=== PATIENT | male | born 1970 | race Caucasian/White ===

== ENCOUNTER → 2019-05-22 | Outpatient (CLI) | payer OTHER, SELFPAY ==
--- NOTE | 2019-05-22 15:27 | MRI_ITS ---
HISTORY: Neck pain, right-sided cervical radiculopathy COMPARISON: None. TECHNIQUE: Multisequence multiplanar MR imaging of the cervical spine was performed per department protocol without IV gadolinium. # of images incl. paperwork: [id number] FINDINGS: VERTEBRA: Congenital narrowed cervical spinal canal on the basis of short pedicles from C3-C6. There is 1-2 mm anterolisthesis of C3 upon C4. Remaining cervical vertebra are in satisfactory alignment. No acute fracture or subluxation. Vertebral body heights are normal. Mild anterior marginal osteophytes at C5 and C6. No focal marrow signal abnormality is seen to suggest a pathologic process. The visualized posterior fossa is normal in signal. CORD: Cervicomedullary junction and cervical cord are normal in caliber, morphology, and signal characteristics. DISCS: Mild disc space narrowing at C5-C6. Moderate disc desiccation C3-C4 through the C6-C7 levels. LEVELS: C2-3: No disc bulges, disc protrusions, canal stenosis or neural foraminal stenosis. C3-4: Mild anterolisthesis in congenitally narrowed spinal canal combined with moderate right facet joint arthropathy and mild right uncovertebral joint hypertrophy results in moderate canal stenosis and severe right foraminal stenosis. No left foraminal stenosis. C4-5: Combination of congenitally narrowed spinal canal and minimal disc bulge results in mild canal stenosis. Mild bilateral facet and uncovertebral joint hypertrophy resulting in mild bilateral foraminal stenosis. C5-6: Combination of congenitally narrowed spinal canal and asymmetric to the left 2 mm disc osteophyte complex combined with moderate left uncovertebral joint hypertrophy and mild bilateral facet joint arthropathy results in moderate canal stenosis and moderate left foraminal stenosis. No right foraminal stenosis. C6-7: There is a left paracentral 2-3 mm disc protrusion with intra-annular tear which combined with congenitally narrowed spinal canal resulting in moderate canal stenosis. Mild left facet joint arthropathy. No significant foraminal stenosis. C7-T1: No disc bulges, disc protrusions, canal stenosis or neural foraminal stenosis. SOFT TISSUES: Paravertebral soft tissues show no gross signal abnormalities. MRI/Spine Cervical (Routine) IMPRESSION: 1. Congenitally narrowed spinal canal on the basis of short pedicles from C3-C6. 2. Moderate canal stenosis and severe right foraminal stenosis at C3-C4. 3. Mild canal and mild bilateral foraminal stenosis at C4-C5. 4. Moderate canal and moderate left foraminal stenosis at C5-C6. 5. Moderate canal stenosis at C6-C7. at 1818 Reported and signed by: Emmanuel River MD Electronically Signed: Emmanuel River MD at 18:16 EDT Tel , Service support ,
== END | disposition home or self-care (01) ==
PROVIDERS: Family Provider Family Medicine; PCP Family Medicine
DX: M54.12 Radiculopathy, cervical region (principal); M50.20 Other cervical disc displacement, unspecified cervical region
CPT/HCPCS: 72141

== ENCOUNTER → 2024-09-17 | Outpatient (CLI) | payer OTHER, SELFPAY ==
[2024-09-17 17:11] LABS: PSA,Total- Diagnostic 5.43 ng/mL (0.0-4.0)
== END | disposition home or self-care (01) ==
PROVIDERS: PCP Family Medicine; Referring Provider Urology; Visit Provider Urology
DX: R97.20 Elevated prostate specific antigen [PSA] (principal)
CPT/HCPCS: 36415; 84153

== ENCOUNTER → 2024-10-16 | Outpatient (CLI) | payer OTHER, SELFPAY ==
--- NOTE | 2024-10-16 11:25 | MRI_ITS ---
STUDY: MR PROSTATE GLAND/ PELVIS WITH T WITHOUT CONTRAST REASON FOR EXAM: Male, 53 years old. ELEVATED PSA 5.43 ON 09/17/24 TECHNIQUE: Standardized fat and water weighted pulse sequences were obtained in all 3 orthogonal planes, pre-and post contrast administration. IV CLARISCAN 21ML was administered for the contrast portion of the examination. COMPARISON: None. FINDINGS: Prostate gland volume/size: 4.71 x 4.81 x 3.85 cm. Anterior fibromuscular stroma: Normal. Peripheral zone: Linear intermediate fibrotic strands are scattered throughout the bilateral peripheral zones. A small hypointense nodule is present posterior and most medial aspect of the left peripheral zone measuring 4.8 mm as seen on image 60/32 series 10 that does not demonstrate any abnormal diffusion weighted signal or focal enhancement. The parenchyma enhances symmetrically to the surrounding tissue. Central zone: Globular islands of cysts and intermediate to low signal nodules and intermediate fibrotic linear strands in both the right and left central and transitional zones with diffuse postcontrast enhancement. These findings are typical of BPH and chronic prostatitis. No discrete malignant neoplasm is seen. Globular islands of cysts and intermediate to low signal nodules and intermediate fibrotic linear strands in both the right and left central and transitional zones with diffuse postcontrast enhancement. These findings are typical of BPH and chronic prostatitis. No discrete malignant neoplasm is seen. Transitional zone: Prostate capsule: Intact: Seminal vesicles: Slight circumferential thickening of the ontiveros of both the right and left sides of the seminal vesicles with preservation of the normal right central fluid signal is likely due to chronic senescent/aging changes or prior inflammation. No visualized mass or enhancing abnormality of the seminal vesicles. No abscess is present. Pelvic sidewall lymphadenopathy: None demonstrated. Bony structures: No lytic or blastic or aggressive process. No demonstrated enhancing lesions. No bone marrow edema or infiltrative marrow replacement process is seen. No visualized pathologic fractures. Bladder: Mild fluid distention. No demonstrated masses or filling defects/stones. No trabeculation of bladder wall thickening. Normal visualized small intestine. Rectosigmoid diverticulosis is present. Vessels: No significant or large aneurysm is demonstrated. Normal osseous structures. Normal abdominal wall. MRI/Pelvis W/WO Contrast IMPRESSION: 1. Peripheral zone: Linear intermediate fibrotic strands are scattered throughout the bilateral peripheral zones. A small hypointense nodule is present posterior and most medial aspect of the left peripheral zone measuring 4.8 mm as seen on image 60/32 series 10 that does not demonstrate any abnormal diffusion weighted signal or focal enhancement. The parenchyma enhances symmetrically to the surrounding tissue. 2. Correlate the nodule and the left peripheral zone with PET/CT imaging or definitive biopsy with pathologic diagnosis as necrotic, hypovascular, or neoplastic nodules surrounded by more intermixed with fibrosis can present in this manner. 3. PI-RADS 3: intermediate (the presence of clinically significant cancer is equivocal) 4. Targeted image guided biopsy of nodules or area of interest can be performed for definitive pathologic assessment of the tissue and diagnosis 5. Prostate PET/CT exam can also be performed to determine if there is viable malignant neoplasm in the prostate gland. Prostate MRI reference: 15-30% of prostate cancers can go undetected on Prostate MRI. Monitoring and assessment by Primary physician, Urology, and oncology service recommended and treated clnically. (Cancers ([place]). 2022 13;15(25):4571. doi: 10.3390/[id number] Prostate Cancers Invisible on Multiparametric MRI: Pathologic Features in Correlation with Whole-Mount Prostatectomy Suzan Power 1,2,*, Sean Sin 3, Germán Lee 1,2, America Warren 1,2, James Hicks 4, Foreign Serrano 5, Leslie Toussaint 6, Dayron Cabrera 1,2, Kayce Palomo 1,2) Reference information: Normal prostate tissue Benign prostatic hypertrophy cancer/tumor - low signal peripheral , transitional, and central zones malignancy appears as bright on DWI and low signal on ADC map Prostate imaging-reporting and data system (PI-RADS) PI-RADS 1: very low (clinically significant cancer is highly unlikely to be present) PI-RADS 2: low (clinically significant cancer is unlikely to be present) PI-RADS 3: intermediate (the presence of clinically significant cancer is equivocal) PI-RADS 4: high (clinically significant cancer is likely to be present) PI-RADS 5: very high (clinically significant cancer is highly likely to be present) PI-RADS X: component of exam technically inadequate or not performed Prostate malignancy distribution: Peripheral zone: 70-80% Transitional zone: 10-20% Central zone: 5% or less Electronically Signed: Favian Estrada MD at 8:54 EST Reading Location ID and State: [facility] / [place] , Service support ,
[2024-10-16 11:52] LABS: CREATININE FINGERSTICK 1.1 mg/dL (0.70-1.30); EGFR FINGERSTICK > 60.0000 mL/min (>60)
== END | disposition home or self-care (01) ==
LOC: MRI 11:10
PROVIDERS: PCP Family Medicine; Referring Provider Urology; Visit Provider Urology
DX: R97.20 Elevated prostate specific antigen [PSA] (principal)
CPT/HCPCS: 72197; A9575

== ENCOUNTER → 2025-03-04 | Outpatient (CLI) | payer OTHER, SELFPAY ==
[2025-03-08 12:08] LABS: PSA, Free 0.82 ng/mL; PSA, Free % 9.6 % (.)
== END | disposition home or self-care (01) ==
LOC: LAB 16:26
PROVIDERS: PCP Family Medicine; Referring Provider Nurse Practitioner; Visit Provider Nurse Practitioner
DX: R97.20 Elevated prostate specific antigen [PSA] (principal)
CPT/HCPCS: 36415; 84153; 84154

== ENCOUNTER → 2025-03-25 | Outpatient (CLI) | payer OTHER, SELFPAY ==
--- NOTE | 2025-03-25 13:00 | PROSBIL_PTH ---
PATIENT: PASCUAL VILLALPANDO LOC: [facility] U#:[id number] AGE/SX: 54/M ROOM: RE03/25/[address]: Dr. Alfredo Pacheco MD : 1970 BED: DIS: 03/25/2025 SPEC #: [id number] RECD: 03/25/25 16:00 STATUS: GREGOR TERRANCE #: [id number] PAUL: 03/25/25 13:[address]: Alfredo Pacheco DEPT: SURGICAL PATHOLOGY RECD BY: Marc Saha ENTERED: 03/26/25 08:40 SP TYPE: PROST BX RADHA DR: Dr. Jayy Bryson MD Tissues: A - PROSTATE RIGHT B - PROSTATE RIGHT C - PROSTATE RIGHT D - PROSTATE LEFT E - PROSTATE LEFT F - PROSTATE LEFT Procedures: PROSTATE BX Immunohistochemical Stains IHC Stain ADDITIONAL HEADER OPERATION: Prostate biopsy PRE-OP DIAGNOSIS: Elevated PSA TISSUE SUBMITTED: A - Right apex, B - Right mid, C - Right base, D - Left apex, E - Left mid, F - Left base MICROSCOPIC DIAGNOSIS A. Prostate, right apex, biopsy: * Focal atypical small acinar proliferation, suspicious for malignancy. * IHC for [id number] supports the histologic impression. B. 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 * IHC for [id number] supports the histologic impression. C. Prostate, right base, biopsy: * Focal atypical small acinar proliferation, suspicious for malignancy. D. Prostate, left apex, biopsy: * Benign prostate tissue. * IHC for [id number] supports the diagnosis. E. Prostate, left mid, biopsy: * Adenocarcinoma Dunellen grade 3+3=6, one of two cores, involving less than 10% of the tissue. F. Prostate, left base, biopsy: * Adenocarcinoma Dunellen grade 3+3=6, two of two cores, involving less than 10% of the tissue MICROSCOPIC DESCRIPTION Slides are reviewed. All matched controls reacted appropriately. These tests were developed and their performance characteristics determined by [facility]. They may not have been cleared or approved by the [place]. Food and Drug Administration. The FDA has determined that such clearance or approval is not necessary.? The above immunohistochemical/dualISH?markers are ordered and reviewed by the Pathologist. GROSS DESCRIPTION A. Received in formalin in a container labeled with the patient's name, date of , and RA are 2 white and wispy core biopsies of soft tissue, each measuring 1.3 x 0.1 cm. Submitted in toto in A1. B. Received in formalin in a container labeled with the patient's name, date of , and RM are 2 white and wispy core biopsies of soft tissue measuring 1.1 x 0.1 cm and 1.5 x 0.1 cm. Submitted in toto in B1. C. Received in formalin in a container labeled with the patient's name, date of , and RB are 2 white and wispy core biopsies of soft tissue measuring 1.0 x 0.1 cm and 1.8 x 0.1 cm. Submitted in toto in C1. D. Received in formalin in a container labeled with the patient's name, date of , and LA is a 0.9 x 0.1 cm white and wispy core biopsy of soft tissue. Submitted in toto in D1. E. Received in formalin in a container labeled with the patient's name, date of , and LM are 2 white and wispy core biopsies of soft tissue measuring 0.7 x 0.1 cm and 1.6 x 0.1 cm. Submitted in toto in E1. F. Received in formalin in a container labeled with the patient's name, date of , and LB are 2 white and wispy core biopsies of soft tissue each measuring 1.3 x 0.1 cm. Submitted in toto in F1. [facility] 03-26-2025 CPT:68319o1,[id number],[id number]
== END | disposition home or self-care (01) ==
LOC: LABSPEC 16:30
PROVIDERS: PCP Family Medicine; Referring Provider Urology; Visit Provider Urology
DX: R97.20 Elevated prostate specific antigen [PSA] (principal)
CPT/HCPCS: 88305; G0416

== ENCOUNTER → 2025-08-13 | Outpatient (CLI) | payer OTHER, SELFPAY ==
[2025-08-13 14:25] LABS: PSA,Total- Diagnostic 7.50 ng/mL (0.00-4.00)
== END | disposition home or self-care (01) ==
PROVIDERS: PCP Family Medicine; Referring Provider Urology; Visit Provider Urology
DX: C61 Malignant neoplasm of prostate (principal); R97.20 Elevated prostate specific antigen [PSA]
CPT/HCPCS: 36415; 84153

== ENCOUNTER → 2025-09-17 | Outpatient (CLI) | payer OTHER, SELFPAY ==
--- NOTE | 2025-09-17 10:48 | RAD_ITS ---
PROCEDURE: L/S SPINE MIN 4 VIEWS 09/17/2025 REASON FOR EXAM: LEFT LEG PAIN TECHNIQUE: Procedure Code: [id number] Modality: DX Procedure: L/S SPINE MIN 4 VIEWS COMPARISON: None FINDINGS: The visualized portion the sacrum appears to be intact without evidence of fracture. SI joints are unremarkable. There are 5 lumbar-type vertebral bodies below the last set of paired ribs. The vertebral body heights are within normal limits. There is no spondylolysis. There is approximately 2 mm of retrolisthesis of L1 in relationship to L2, 2 mm of retrolisthesis of L2 in relationship to L3, 2 mm of retrolisthesis of L3 in relationship to L4 and 2 mm of anterior listhesis of L4 in relationship to L5. Mild spondylosis of the lumbar spine is noted. Mild degenerative disc disease is seen involving the lumbar discs. There does appear to be some bony encroachment of the neural foramina at the lower levels. Facet hypertrophy is noted. Arteriosclerotic vascular disease of the aorta is noted. RAD/L/S Spine Min 4 Views IMPRESSION: Mild spondylosis of the lumbar spine. Mild degenerative disc disease involving the lumbar discs. Reading Location: [id number]
== END | disposition home or self-care (01) ==
LOC: MTRAD 10:48
PROVIDERS: PCP Family Medicine; Referring Provider Orthopaedic Surgery; Visit Provider Orthopaedic Surgery
DX: M54.50 Low back pain, unspecified (principal); M79.605 Pain in left leg
CPT/HCPCS: 72110